=== PATIENT | female | born 1995 | race African-American/Black ===

== ENCOUNTER 2023-09-14 11:50 | Emergency (ER) | payer OTHER, SELFPAY ==
[2023-09-14 11:54] VITALS: BP 108/66; PULSE 70; RESP 18; TEMP 36.9; O2SAT 98
--- NOTE | 2023-09-14 12:23 | PC.NURSE ---
Pt started her period yesterday. States there is a yeast infection smell or like old fish. Also had increased/white discharge, and is only having small pebble bowel movements. Recently in [facility] with food poisioning and rectal bleeding that has since resolved. Thinks she was put on antibiotics at that time. Wants STD testing.
[2023-09-14 12:36] LABS: Bacteria Urine Moderate (10-30); RBC Urine >100/HPF (0-5/HPF); Squamous Epithelial Cell Urine 1-5 /HPF (0-5/HPF); Urine Volume 10mL (spun); WBC Urine 5-10/HPF (0-5/HPF)
[2023-09-14 12:37] LABS: Culture Indicated Urine Specimen Cultured
--- NOTE | 2023-09-14 13:30 | ED.FEMALEGU ---
HPI - Female Genitourinary General Chief complaint: Vaginal Bleeding Stated complaint: vaginal bleeding, possible yeast infection Time Seen by Provider: 09/14/23 12:17 Source: patient Mode of arrival: Ambulatory History of Present Illness HPI Narrative: Patient is a 28-year-old female no significant medical history presenting today with some mild vaginal bleeding and vaginal. He reports that about 2 weeks ago she was in [place] he had a gastroenteritis and bloody stool she had a workup including a CT scan ultimately was discharged home in the bleeding when symptoms stopped. She now is complaining of some abnormal vaginal smell which she reports as a fish. She has never had this before. She has not had unprotected sex in over 1 month. She has not currently on control. She thinks she just started her cycle and is having some bleeding. However she is having pretty significant cramps and lower abdominal pain more so in the left the right this is atypical for. No fevers or chills. She denies any further diarrhea. She does have a history of chlamydia but not recently. Related Data Previous Rx's Medication Instructions Recorded metronidazole 500 mg tablet 500 mg PO BID 7 days #14 tabs 09/14/23 Allergies Allergy/AdvReac Type Severity Reaction Status Date / Time peanut Allergy Severe Anaphylaxis Verified 09/14/23 12:09 sulfamethoxazole Allergy Severe Anaphylaxis Verified 09/14/23 12:09 [From Bactrim] trimethoprim [From Bactrim] Allergy Severe Anaphylaxis Verified 09/14/23 12:09 Patient History alcohol intake frequency: holidays/special occasions only Substance Use Type: does not use Exam Initial Vital Signs Initial Vital Signs: Vital Signs Temperature 98.5 F 09/14/23 11:54 Pulse Rate 70 09/14/23 11:54 Respiratory Rate 18 09/14/23 11:54 Blood Pressure 108/66 09/14/23 11:54 Pulse Oximetry 98 09/14/23 11:54 Oxygen Delivery Method Room Air 09/14/23 11:54 GENERAL: Alert pleasant 28-year-old female and in no acute distress. HEENT: Head atraumatic,EOMI, pupils reactive, face symmetric, moist mucous membranes CARDIOVASCULAR: Regular rate and rhythm without murmurs, rubs or gallops. RESPIRATORY: Breath sounds equal bilaterally, no wheezes rales or rhonchi. ABDOMEN: Soft, tender left lower quadrant pain no guarding or rebound EXTREMITIES: Normal range of motion, no clubbing or edema. Neurovascularly intact NEUROLOGICAL: Alert and oriented x4.Normal gait and speech. SKIN: Warm, dry, no laceration, no petechiae, no rashes or lesions. Course Orders Ordered: Discontinued Medications Acetaminophen (Acetaminophen 325 Mg Tablet) 975 mg PO NOW ONE Stop: 09/14/23 13:31 Last Admin: 09/14/23 13:43 Dose: 975 mg Documented By: SB Ibuprofen (Ibuprofen 400 Mg Tablet) 800 mg PO NOW ONE Stop: 09/14/23 13:31 Last Admin: 09/14/23 13:43 Dose: 800 mg Documented By: SB Vital Signs Vital signs: Vital Signs - 8 hr 09/14/23 11:54 Temperature 98.5 F Pulse Rate 70 Respiratory Rate 18 Blood Pressure 108/66 Pulse Oximetry 98 Oxygen Delivery Method Room Air MDM - Female Genitourinary Lab Data Labs: Lab Results 09/14/23 Range/Units 12:23 Urine RBC >100/hpf H (0-5/HPF) Urine WBC 5-10/hpf H (0-5/HPF) Ur Squamous Epith Cells 1-5 /hpf (0-5/HPF) Urine Bacteria Moderate (10-30) H (None) Ur Culture Indicated? Specimen cultured Vol Urine Centrifuged 10ml (spun) Ur Chlamydia DNA (PCR) Not detected N gonorrhoeae DNA (PCR) Not detected Point of Care Testing Test Results Negative Urine Dip Bedside Urine Glucose Negative Bedside Urine Bilirubin - Negative Bedside Urine Ketone - Negative Urine Specific [place] 1.015 Bedside Urine Occult Blood +++ Bedside Urine pH 6.0 Bedside Urine Protein + 30 Bedside Urine Urobilinogen - Negative Bedside Urine Nitrite - Negative Bedside Urine Leukocytes - Negative Esterase Imaging Data US - PRODUCTION TEAM LEADER: Radiologist's Impression: PROCEDURE: US PELVIC COMPLETE INDICATIONS: PAIN TECHNIQUE: Real-time scanning was performed of the pelvic organs, with image documentation. Additional endovaginal scanning was necessary due to incomplete visualization of the adnexal and endometrial structures by transabdominal scanning. COMPARISON: None. FINDINGS: Uterus: Uterus is anteverted and normal in size at 9.8 x 5.2 x 6.0 cm. The myometrium is homogeneous. The endometrium measures 7.2 mm combined thickness. Ovaries: The right ovary measures 4.0 x 1.6 x 1.9 cm, with a calculated ovarian volume of 6.3 cc. The left ovary measures 2.1 x 2.7 x 1.7 cm, with a calculated ovarian volume of 5.1 cc. The ovaries have a normal sonographic appearance. Less than 12 follicles can be seen in each ovary. No adnexal masses are seen. Other: No pathologic free abdominal or pelvic fluid. IMPRESSION: Normal appearance of the ovaries and uterus. Normal vascularity is seen to the bilateral ovaries. We strive to produce accurate, complete, and clear reports of imaging services. To assist us in improving patient care, this report was composed using standard report templates and voice recognition software. Therefore, it may contain abnormal punctuation, insertions and/or omissions. Occasional wrong-word or sound-alike substitutions may occur. Though we review the report and make efforts to correct it, we do recommend that the report be read carefully in proper context to recognize any text inaccuracies. Dictated by: Jared Najera M.D. on 09/14/2023 at 15:0 MDM Narrative Medical decision making narrative: Patient healthy 28-year-old female who presents today with foul-smelling vaginal discharge and some vaginal bleeding. She is not also having some lower abdominal pain. She self swabbed wet mount is positive for clue cells with fishy smell consistent with bacterial vaginosis. Ultrasound does not show any evidence of ovarian cyst or torsion suspect menstrual cramping. She is given Toradol and Motrin. Discharge Plan Departure Patient Disposition: Home Clinical Impression: Bacterial vaginosis Instructions: DI for Bacterial Vaginosis Activity Restrictions/Additional Instructions: *You have been diagnosed with bacterial vaginosis *What to do: *Continue to take medications as directed Flagyl 500 mg twice a day for 7 days (do not drink alcohol with this, can cause vomiting) *Follow up with your primary care provider in 2-3 days or call [phone] *Return to ER if you should have increasing pain, or any new, worsening or concerning symptoms Prescriptions: New metronidazole 500 mg tablet 500 mg PO BID 7 Days Qty: 14 0RF Referrals: ProviderShakila [Primary Care Provider] - Stand Alone Forms: Patient Portal/API
[2023-09-14] MEDS: IBUPROFEN 400 MG TABLET 800 MG PO (13:43)
[2023-09-14] MEDS: ACETAMINOPHEN 325 MG TABLET 975 MG PO (13:43)
--- NOTE | 2023-09-14 14:19 | DI.US.S_ITS ---
PROCEDURE: US PELVIC COMPLETE INDICATIONS: PAIN TECHNIQUE: Real-time scanning was performed of the pelvic organs, with image documentation. Additional endovaginal scanning was necessary due to incomplete visualization of the adnexal and endometrial structures by transabdominal scanning. COMPARISON: None. FINDINGS: Uterus: Uterus is anteverted and normal in size at 9.8 x 5.2 x 6.0 cm. The myometrium is homogeneous. The endometrium measures 7.2 mm combined thickness. Ovaries: The right ovary measures 4.0 x 1.6 x 1.9 cm, with a calculated ovarian volume of 6.3 cc. The left ovary measures 2.1 x 2.7 x 1.7 cm, with a calculated ovarian volume of 5.1 cc. The ovaries have a normal sonographic appearance. Less than 12 follicles can be seen in each ovary. No adnexal masses are seen. Other: No pathologic free abdominal or pelvic fluid. IMPRESSION: Normal appearance of the ovaries and uterus. Normal vascularity is seen to the bilateral ovaries. We strive to produce accurate, complete, and clear reports of imaging services. To assist us in improving patient care, this report was composed using standard report templates and voice recognition software. Therefore, it may contain abnormal punctuation, insertions and/or omissions. Occasional wrong-word or sound-alike substitutions may occur. Though we review the report and make efforts to correct it, we do recommend that the report be read carefully in proper context to recognize any text inaccuracies. Dictated by: Jared Najera M.D. on 09/14/2023 at 15:02 Approved by: Jared Najera M.D. on 09/14/2023 at 15:03
[2023-09-14 15:10] LABS: Urine Chlamydia NOT DETECTED; Urine N gonorrhoeae NOT DETECTED
[2023-09-14 15:25] VITALS: BP 108/69; PULSE 78; RESP 16; TEMP 37; O2SAT 100
== END 2023-09-14 15:29 | disposition home or self-care (01) ==
PROVIDERS: Emergency Provider Emergency Medicine
DX: N76.0 Acute vaginitis (principal)
CPT/HCPCS: 76830; 76856; 81003; 81015; 81025; 87070; 87077; 87086; 87205; 87210; 87491; 87591; 93975; 99283